=== PATIENT | female | born 1950 | race Caucasian/White ===

== ENCOUNTER → 2018-03-13 | Outpatient (REF) | payer MEDICARE ==
[2018-03-13 11:02] LABS: HEMATOCRIT 35.6 % (37.0-47.0); HEMOGLOBIN 12.1 g/dl (12.0-16.0); IMMATURE GRANULOCYTES 0.5 % (0.0-5.0); MEAN CELL VOLUME 92.7 fL CALC (80.0-100.0); MEAN CORPUSCULAR HGB 31.5 pG CALC (26.0-32.0); NEUT# 2.58 thou/uL (2.00-7.15); RED BLOOD COUNT 3.84 mill/uL (4.20-5.60); RED CELL DISTRI WIDTH 13.3 % (11.5-15.5)
[2018-03-13 11:23] LABS: ANION GAP 12 (6-22 (CALC)); BUN 16 mg/dL (8-23); BUN/CREATININE RATIO 19 (12-20 (CALC)); CARBON DIOXIDE 25 mmol/l (22-30); CHLORIDE 110 mmol/l (95-108); CREATININE 0.9 mg/dL (0.5-1.0); GFR > 60 ML/MIN (>=60 (CALC)); GFR FOR AFR.AMER. > 60 ML/MIN (>=60 (CALC)); POTASSIUM 3.6 mmol/l (3.5-5.1); SODIUM 142 mmol/l (137-146)
== END | disposition home or self-care (01) ==
LOC: LAB 10:16
PROVIDERS: ATTEND Internal Medicine Pulmonary Disease
DX: D64.9 Anemia, unspecified (principal); E87.6 Hypokalemia

== ENCOUNTER → 2018-08-12 | Outpatient (REF) | payer MEDICARE ==
[2018-08-12 11:44] LABS: HEMATOCRIT 37.2 % (37.0-47.0); HEMOGLOBIN 12.3 g/dl (12.0-16.0); IMMATURE GRANULOCYTES 0.7 % (0.0-5.0); MEAN CELL VOLUME 94.2 fL CALC (80.0-100.0); MEAN CORPUSCULAR HGB 31.1 pG CALC (26.0-32.0); MEAN CORPUSCULAR HGB CONC 33.1 g/L CALC (32.0-36.0); NEUT# 3.19 thou/uL (2.00-7.15); RED BLOOD COUNT 3.95 mill/uL (4.20-5.60); RED CELL DISTRI WIDTH 13.2 % (11.5-15.5)
[2018-08-12 11:56] LABS: ALBUMIN 4.4 g/dL (3.2-5.0); ALKALINE PHOSPHATASE 86 u/l (38-126); ANION GAP 12 (6-22 (CALC)); BILIRUBIN, TOTAL 0.4 mg/dL (0.0-1.4); BUN 22 mg/dL (8-23); BUN/CREATININE RATIO 18 (12-20 (CALC)); C-REACTIVE PROTEIN 1.1 mg/dL (0-0.9); CARBON DIOXIDE 22 mmol/l (22-30); CHLORIDE 109 mmol/l (95-108); CREATININE 1.2 mg/dL (0.5-1.0); GFR 45 ML/MIN (>=60 (CALC)); GFR FOR AFR.AMER. 54 ML/MIN (>=60 (CALC)); POTASSIUM 4.2 mmol/l (3.5-5.1); SGOT/AST 29 u/l (9-36); SODIUM 140 mmol/l (137-146); TOTAL PROTEIN 7.1 g/dL (6.3-8.2)
== END | disposition home or self-care (01) ==
LOC: ULTRASND 09:58
PROVIDERS: ATTEND Internal Medicine Pulmonary Disease
DX: I10 Essential (primary) hypertension (principal); N18.9 Chronic kidney disease, unspecified; D64.9 Anemia, unspecified; M19.90 Unspecified osteoarthritis, unspecified site; R76.8 Other specified abnormal immunological findings in serum

== ENCOUNTER → 2018-08-27 | Outpatient (REF) | payer MEDICARE ==
[2018-08-27 10:21] LABS: URINE BILIRUBIN - DIPSTICK NEGATIVE (NEGATIVE); URINE BLOOD DIPSTICK NEGATIVE (NEGATIVE); URINE COLOR YELLOW; URINE GLUCOSE - DIPSTICK NEGATIVE (NEGATIVE); URINE KETONE NEGATIVE (NEGATIVE); URINE LEUK ESTERASE NEGATIVE (NEGATIVE); URINE NITRITE - DIPSTICK NEGATIVE (Negative); URINE PH 5.5 (4.5-8.0); URINE PROTEIN - DIPSTICK NEGATIVE (NEG-TRACE); URINE SPECIFIC GRAVITY >=1.030; URINE UROBILINOGEN - DIPSTICK 0.2 E.U./dL (0.2)
[2018-08-27 10:24] LABS: HEMATOCRIT 37.6 % (37.0-47.0); HEMOGLOBIN 12.6 g/dl (12.0-16.0); IMMATURE GRANULOCYTES 1.3 % (0.0-5.0); MEAN CORPUSCULAR HGB 30.5 pG CALC (26.0-32.0); MEAN CORPUSCULAR HGB CONC 33.5 g/L CALC (32.0-36.0); NEUT# 3.19 thou/uL (2.00-7.15); RED BLOOD COUNT 4.13 mill/uL (4.20-5.60); RED CELL DISTRI WIDTH 12.8 % (11.5-15.5)
[2018-08-27 10:53] LABS: ALBUMIN 4.4 g/dL (3.2-5.0); BILIRUBIN, TOTAL 0.3 mg/dL (0.0-1.4); CREATININE 1.1 mg/dL (0.5-1.0); POTASSIUM 4.3 mmol/l (3.5-5.1); TOTAL PROTEIN 7.6 g/dL (6.3-8.2)
[2018-08-27 11:06] LABS: CHOLESTEROL HDL RATIO 3.9 (<4.4 (CALC))
== END | disposition home or self-care (01) ==
LOC: LAB 09:56
PROVIDERS: ATTEND Internal Medicine Nephrology
DX: N18.3 Chronic kidney disease, stage 3 (moderate) (principal); I10 Essential (primary) hypertension; E78.5 Hyperlipidemia, unspecified; E03.9 Hypothyroidism, unspecified; Z79.899 Other long term (current) drug therapy

== ENCOUNTER 2019-06-30 16:10 | Inpatient (IN) | payer MEDICARE ==
[~2019-06-30] VITALS: Ht 152.4 cm; Wt 69.7 kg
[2019-06-30 17:16] LABS: HEMATOCRIT 36.2 % (37.0-47.0); HEMOGLOBIN 12.1 g/dl (12.0-16.0); IMMATURE GRANULOCYTES 4.7 % (0.0-5.0); MEAN CELL VOLUME 91.6 fL CALC (80.0-100.0); MEAN CORPUSCULAR HGB 30.6 pG CALC (26.0-32.0); MEAN CORPUSCULAR HGB CONC 33.4 g/L CALC (32.0-36.0); NEUT# 5.57 thou/uL (2.00-7.15); RED BLOOD COUNT 3.95 mill/uL (4.20-5.60); RED CELL DISTRI WIDTH 13.8 % (11.5-15.5)
[2019-06-30 17:46] LABS: ALBUMIN 3.7 g/dL (3.2-5.0); ALKALINE PHOSPHATASE 79 u/l (38-126); BILIRUBIN, TOTAL 0.5 mg/dL (0.0-1.4); BUN 30 mg/dL (8-23); CHLORIDE 101 mmol/l (95-108); POTASSIUM 4.5 mmol/l (3.5-5.1); SGOT/AST 63 u/l (9-36); TOTAL PROTEIN 6.5 g/dL (6.3-8.2)
[2019-06-30 17:56] LABS: ANION GAP 16 (6-22 (CALC)); CARBON DIOXIDE 18 mmol/l (22-30); SODIUM 130 mmol/l (137-146)
[2019-06-30 18:35] LABS: BUN/CREATININE RATIO 38 (12-20 (CALC)); CREATININE 0.8 mg/dL (0.5-1.0); GFR > 60 ML/MIN (>=60 (CALC)); GFR FOR AFR.AMER. > 60 ML/MIN (>=60 (CALC))
[2019-06-30] MEDS ORDERED: FLUDROCORT0.1 MG PO (18:42)
[2019-06-30] MEDS ORDERED: ARNUITY EL50 MCG/ACT NAB (18:43)
[2019-06-30] MEDS ORDERED: BREO ELLIPTA1 INH IN (18:44)
[2019-06-30] MEDS ORDERED: HYDROMET1 M1 PO (18:48)
[2019-06-30] MEDS ORDERED: LEVOTHYROXIN75 MCG PO (18:48)
[2019-06-30] MEDS ORDERED: LIOTHYRONINE5 MCG PO (18:49)
[2019-06-30] MEDS ORDERED: CLARITIN10 M1 PO (18:50)
[2019-06-30] MEDS ORDERED: MELATONIN PO (18:51)
[2019-06-30] MEDS ORDERED: MELOXICAM15 MG PO (18:51)
[2019-06-30] MEDS ORDERED: MULTI VITAMIN1 TAB PO (18:53)
[2019-06-30] MEDS ORDERED: POT CHLORIDE20 ME3 PO (18:54)
[2019-06-30 19:02] LABS: URINE BILIRUBIN - DIPSTICK NEGATIVE (NEGATIVE); URINE BLOOD DIPSTICK NEGATIVE (NEGATIVE); URINE COLOR YELLOW; URINE GLUCOSE - DIPSTICK 250 mg/dL (NEGATIVE); URINE KETONE NEGATIVE (NEGATIVE); URINE LEUK ESTERASE NEGATIVE (NEGATIVE); URINE NITRITE - DIPSTICK NEGATIVE (Negative); URINE PROTEIN - DIPSTICK NEGATIVE (NEG-TRACE); URINE UROBILINOGEN - DIPSTICK 0.2 E.U./dL (0.2)
[2019-06-30] MEDS ORDERED: VITAMIN C500 M6 PO (19:18)
[2019-06-30] MEDS ORDERED: METRONIDAZOL500 MG PO (19:18)
[2019-06-30] MEDS ORDERED: DOXYCYCL HYC100 MG PO (19:18)
[2019-06-30] MEDS ORDERED: TESSALON PER100 MG PO (19:19)
[2019-06-30] MEDS ORDERED: DOXEPIN HCL25 MG PO (19:21)
[2019-06-30] MEDS ORDERED: VIBERZI75 MG PO (19:22)
[2019-06-30] MEDS ORDERED: DHEA25 M1 PO (19:23)
[2019-06-30] MEDS ORDERED: PREDNISONE10 MG PO (19:23)
[2019-06-30] MEDS ORDERED: NEXIUM40 MG PO (19:24)
[2019-06-30] MEDS ORDERED: VITAMIN D31000 UNI1 PO (19:25)
[2019-06-30] MEDS ORDERED: PROGESTERONE200 MG PO (19:26)
[2019-06-30] MEDS ORDERED: MIDODRINE5 MG PO (19:26)
[2019-06-30] MEDS ORDERED: PROPRANOLOL HCL20 MG PO (19:29)
[2019-06-30] MEDS ORDERED: FLORASTOR250 M1 PO (19:30)
[2019-06-30] MEDS ORDERED: QUETIAPINE FUM100 MG PO (19:30)
[2019-06-30] MEDS ORDERED: SPIRONOLACTONE25 MG PO (19:31)
[2019-06-30] MEDS ORDERED: VENLAFAXINE HCL75 M1 PO (19:33)
[2019-06-30] MEDS ORDERED: MAXZIDE-2537.5 MG/TA PO (19:33)
[2019-06-30 22:51] VITALS: BP 144/83
[2019-07-01] VITALS (9 sets, daily range): BP systolic 107–177; BP diastolic 53–97
[2019-07-01] MEDS ORDERED: VITAMIN C500 M6 PO (16:14)
[2019-07-01] MEDS ORDERED: TESSALON PER100 MG PO (16:17)
[2019-07-01] MEDS ORDERED: EQL VITAMIN PO (16:24)
[2019-07-01] MEDS ORDERED: DOXEPIN HCL25 MG (16:27)
[2019-07-01] MEDS ORDERED: VIBERZI100 MG PO (16:29)
[2019-07-01] MEDS ORDERED: NEXIUM40 MG PO (16:30)
[2019-07-02 04:25] VITALS: BP 117/69
[2019-07-02 07:31] VITALS: BP 140/78
[2019-07-02 11:25] VITALS: BP 157/74
[2019-07-02 16:18] VITALS: BP 135/67
[2019-07-02 19:17] VITALS: BP 131/75
[2019-07-03 00:02] VITALS: BP 94/57
[2019-07-03 03:40] VITALS: BP 101/62
[2019-07-03 05:26] LABS: IMMATURE GRANULOCYTES 2.5 % (0.0-5.0); MEAN CELL VOLUME 92.4 fL CALC (80.0-100.0); MEAN CORPUSCULAR HGB 30.8 pG CALC (26.0-32.0); MEAN CORPUSCULAR HGB CONC 33.3 g/L CALC (32.0-36.0); NEUT# 1.39 thou/uL (2.00-7.15); RED BLOOD COUNT 2.89 mill/uL (4.20-5.60); RED CELL DISTRI WIDTH 14.3 % (11.5-15.5)
[2019-07-03 05:34] LABS: HEMOGLOBIN 8.9 g/dl (12.0-16.0)
[2019-07-03 05:35] LABS: HEMATOCRIT 26.7 % (37.0-47.0)
[2019-07-03 05:47] LABS: BUN 12 mg/dL (8-23); BUN/CREATININE RATIO 23 (12-20 (CALC)); CARBON DIOXIDE 20 mmol/l (22-30); CHLORIDE 112 mmol/l (95-108); CREATININE 0.5 mg/dL (0.5-1.0); GFR > 60 ML/MIN (>=60 (CALC)); GFR FOR AFR.AMER. > 60 ML/MIN (>=60 (CALC)); MAGNESIUM 1.5 mg/dL (1.6-2.3); SODIUM 136 mmol/l (137-146)
[2019-07-03 05:54] LABS: ANION GAP 7 (6-22 (CALC)); POTASSIUM 3.1 mmol/l (3.5-5.1)
[2019-07-03 07:40] VITALS: BP 124/71
[2019-07-03 11:00] VITALS: BP 105/63
[2019-07-03 15:48] VITALS: BP 116/73
[2019-07-03] MEDS ORDERED: DILTIAZEM HCL60 MG PO (16:40)
== END 2019-07-03 17:51 | disposition home or self-care (01) | DRG 309 ==
LOC: ED 16:10 → ED-I 19:04 → ED 19:16 → MS2 19:17
PROVIDERS: Family Medicine; Nurse Practitioner Family; ADMIT Internal Medicine; ATTEND Internal Medicine
DX: I49.8 Other specified cardiac arrhythmias (principal); E27.40 Unspecified adrenocortical insufficiency; I95.1 Orthostatic hypotension; E87.6 Hypokalemia; I10 Essential (primary) hypertension; J44.9 Chronic obstructive pulmonary disease, unspecified; E03.9 Hypothyroidism, unspecified
CPT/HCPCS: G0378

== ENCOUNTER 2019-11-10 13:44 | Emergency (ER) | payer MEDICARE ==
[~2019-11-10 13:44] MED LIST: ARNUITY EL50 MCG/ACT NAB; BREO ELLIPTA1 INH IN; CLARITIN10 M1 PO; DHEA25 M1 PO; DILTIAZEM HCL60 MG PO; DOXEPIN HCL25 MG; DOXEPIN HCL25 MG PO; DOXYCYCL HYC100 MG PO; EQL VITAMIN PO; FLORASTOR250 M1 PO; FLUDROCORT0.1 MG PO; HYDROMET1 M1 PO; LEVOTHYROXIN75 MCG PO; LIOTHYRONINE5 MCG PO; MAXZIDE-2537.5 MG/TA PO; MELATONIN PO; MELOXICAM15 MG PO; METRONIDAZOL500 MG PO; MIDODRINE5 MG PO; MULTI VITAMIN1 TAB PO; NEXIUM40 MG PO; POT CHLORIDE20 ME3 PO; PREDNISONE10 MG PO; PROGESTERONE200 MG PO; PROPRANOLOL HCL20 MG PO; QUETIAPINE FUM100 MG PO; SPIRONOLACTONE25 MG PO; TESSALON PER100 MG PO; VENLAFAXINE HCL75 M1 PO; VIBERZI100 MG PO; VIBERZI75 MG PO; VITAMIN C500 M6 PO; VITAMIN D31000 UNI1 PO
[2019-11-10 14:42] LABS: HEMOGLOBIN 11.8 g/dl (12.0-16.0); IMMATURE GRANULOCYTES 0.4 % (0.0-5.0); MEAN CELL VOLUME 90.9 fL CALC (80.0-100.0); MEAN CORPUSCULAR HGB 30.6 pG CALC (26.0-32.0); MEAN CORPUSCULAR HGB CONC 33.7 g/dL CAL (32.0-36.0); NEUT# 3.49 thou/uL (2.00-7.15); RED BLOOD COUNT 3.85 mill/uL (4.20-5.60)
[2019-11-10 14:58] LABS: ALBUMIN 4.2 g/dL (3.2-5.0); ALKALINE PHOSPHATASE 256 u/l (38-126); ANION GAP 12 (6-22 (CALC)); BILIRUBIN, TOTAL 0.4 mg/dL (0.0-1.4); BUN 19 mg/dL (8-23); BUN/CREATININE RATIO 19 (12-20 (CALC)); CARBON DIOXIDE 24 mmol/l (22-30); CHLORIDE 104 mmol/l (95-108); GFR 55 ML/MIN (>=60 (CALC)); GFR FOR AFR.AMER. > 60 ML/MIN (>=60 (CALC)); LIPASE 213 u/l (23-300); MAGNESIUM 1.7 mg/dL (1.6-2.3); POTASSIUM 2.9 mmol/l (3.5-5.1); SGOT/AST 45 u/l (9-36); SODIUM 137 mmol/l (137-146); TOTAL PROTEIN 7.9 g/dL (6.3-8.2)
[2019-11-10 15:27] LABS: TSH, 3RD GENERATION 0.05 uIU/mL (0.47 - 4.68)
[2019-11-10 15:30] VITALS: BP 138/93
== END 2019-11-10 15:28 | disposition short-term general hospital (02) ==
LOC: ED 13:44
PROVIDERS: Family Medicine
PROC: 5A2204Z Restoration of Cardiac Rhythm, Single (ICD-10-PCS; principal; 2019-11-10)
DX: I47.2 Ventricular tachycardia (principal); I10 Essential (primary) hypertension
CPT/HCPCS: J0282

== ENCOUNTER → 2021-02-12 | Outpatient (REF) | payer MEDICARE ==
[2021-02-12 10:41] LABS: URINE BILIRUBIN - DIPSTICK NEGATIVE (NEGATIVE); URINE BLOOD DIPSTICK NEGATIVE (NEGATIVE); URINE CLARITY CLEAR; URINE COLOR YELLOW; URINE GLUCOSE - DIPSTICK NEGATIVE (NEGATIVE); URINE KETONE NEGATIVE (NEGATIVE); URINE LEUK ESTERASE NEGATIVE (Negative); URINE NITRITE - DIPSTICK NEGATIVE (Negative); URINE PH 6.5 (4.5-8.0); URINE PROTEIN - DIPSTICK NEGATIVE (NEG-TRACE); URINE UROBILINOGEN - DIPSTICK 0.2 E.U./dL (0.2)
[2021-02-12 10:44] LABS: HEMATOCRIT 33.5 % (37.0-47.0); IMMATURE GRANULOCYTES 0.5 % (0.0-5.0); MEAN CORPUSCULAR HGB 34.2 pG CALC (26.0-32.0); MEAN CORPUSCULAR HGB CONC 32.8 g/dL CAL (32.0-36.0); NEUT# 4.57 thou/uL (2.00-7.15); RED BLOOD COUNT 3.22 mill/uL (4.20-5.60); RED CELL DISTRI WIDTH 15.9 % (11.5-15.5)
[2021-02-12 10:58] LABS: ALBUMIN 4.3 g/dL (3.2-5.0); BILIRUBIN, TOTAL 0.4 mg/dL (0.0-1.4); CREATININE 2.1 mg/dL (0.5-1.0); MAGNESIUM 1.8 mg/dL (1.6-2.3); POTASSIUM 3.9 mmol/l (3.5-5.1); TOTAL PROTEIN 7.6 g/dL (6.3-8.2)
== END | disposition home or self-care (01) ==
LOC: LAB 09:29
PROVIDERS: ATTEND Internal Medicine Pulmonary Disease
DX: N18.4 Chronic kidney disease, stage 4 (severe) (principal); D64.9 Anemia, unspecified; I50.9 Heart failure, unspecified; E61.2 Magnesium deficiency; E87.8 Other disorders of electrolyte and fluid balance, not elsewhere classified; R82.1 Myoglobinuria

== ENCOUNTER 2021-06-27 04:48 | Inpatient (IN) | payer MEDICARE ==
[~2021-06-27] VITALS: Ht 152.4 cm; Wt 52.0 kg
[2021-06-27] VITALS (10 sets, daily range): BP systolic 123–170; BP diastolic 60–83
[~2021-06-27 04:48] MED LIST changes: +DOXEPIN HCL10 MG PO; -DOXEPIN HCL25 MG PO; -LEVOTHYROXIN75 MCG PO; +LEVOTHYROXIN88 MC1 PO; -MELATONIN PO; +MELATONIN10 M1 PO
[2021-06-27 05:40] LABS: HEMATOCRIT 33.3 % (37.0-47.0); HEMOGLOBIN 10.3 g/dl (12.0-16.0); IMMATURE GRANULOCYTES 1.3 % (0.0-5.0); MEAN CELL VOLUME 121.5 fL CALC (80.0-100.0); MEAN CORPUSCULAR HGB 37.6 pG CALC (26.0-32.0); MEAN CORPUSCULAR HGB CONC 30.9 g/dL CAL (32.0-36.0); NEUT# 19.62 thou/uL (2.00-7.15); RED BLOOD COUNT 2.74 mill/uL (4.20-5.60); RED CELL DISTRI WIDTH 16.2 % (11.5-15.5)
[2021-06-27 05:59] LABS: D-DIMER 1.4 mg/L (0.19-0.60)
[2021-06-27 06:04] LABS: ALBUMIN 4.1 g/dL (3.2-5.0); BILIRUBIN, TOTAL 0.9 mg/dL (0.0-1.4); CREATININE 2.1 mg/dL (0.5-1.0); MAGNESIUM 1.7 mg/dL (1.6-2.3); POTASSIUM 5.1 mmol/l (3.5-5.1)
[2021-06-27 06:05] LABS: ACT PARTIAL THROMBO TIME 19.4 SECONDS (20.0-32.5); INTERNATIONAL NORMALIZED RATIO 1.1 RATIO (0.7-1.3); PROTHROMBIN TIME 11.4 SECONDS (9.0-12.5)
[2021-06-27] MEDS ORDERED: VENLAFAXINE100 MG PO (07:44)
[2021-06-27] MEDS ORDERED: ZYLOPRIM100 MG PO (07:44)
[2021-06-27] MEDS ORDERED: ALBUTEROL108 MCG/AC PO (07:49)
[2021-06-27] MEDS ORDERED: ADULT ASPIRIN R81 MG PO (07:50)
[2021-06-27] MEDS ORDERED: TENORMIN50 MG PO (07:50)
[2021-06-27] MEDS ORDERED: BUDESONID2 IN (07:52)
[2021-06-27] MEDS ORDERED: DHEA PO (07:54)
[2021-06-27] MEDS ORDERED: FEBUXOSTAT40 MG PO (07:55)
[2021-06-27] MEDS ORDERED: FISH OIL1 CAP PO (07:55)
[2021-06-27] MEDS ORDERED: FOLIC ACID1 M1 PO (07:56)
[2021-06-27] MEDS ORDERED: GLIPIZIDE ER5 MG PO (07:58)
[2021-06-27] MEDS ORDERED: LASIX 40 MG TAB40 MG PO (07:59)
[2021-06-27] MEDS ORDERED: HYDROCORT10 MG PO (07:59)
[2021-06-27] MEDS ORDERED: TYLENOL500 MG PO (08:01)
[2021-06-27] MEDS ORDERED: VITAMIN D2 PO (08:02)
[2021-06-27] MEDS ORDERED: NIASPAN1000 MG PO (08:10)
[2021-06-27] MEDS ORDERED: NPLATE125 MCG SC (08:11)
[2021-06-27] MEDS ORDERED: PLAVIX75 MG PO (08:12)
[2021-06-27] MEDS ORDERED: PEPCID20 MG PO (08:12)
[2021-06-27] MEDS ORDERED: PROTONIX40 M2 PO (08:12)
[2021-06-27] MEDS ORDERED: PREDNISONE10 MG PO (08:13)
[2021-06-27] MEDS ORDERED: PROGESTERONE200 MG PO (08:13)
[2021-06-27] MEDS ORDERED: SEROQUEL200 MG PO (08:16)
[2021-06-27] MEDS ORDERED: SILDENAFIL20 MG PO (08:17)
[2021-06-27] MEDS ORDERED: ALDACTONE100 MG PO (08:17)
[2021-06-27] MEDS ORDERED: INDERAL10 M1 PO (08:18)
[2021-06-27] MEDS ORDERED: BUMETANIDE1 MG PO (08:20)
[2021-06-27] MEDS ORDERED: DICYCLOMINE HCL20 MG PO (08:21)
[2021-06-27] MEDS ORDERED: [UNRECOGNIZED DRUG - CODE] IV (08:23)
[2021-06-27] MEDS ORDERED: MIDODRINE5 MG PO (08:24)
[2021-06-27] MEDS ORDERED: NITROGLYCERIN0.3 MG PO (08:26)
[2021-06-27] MEDS ORDERED: PERFOROMIS20 MCG/2 M PO (08:27)
[2021-06-27] MEDS ORDERED: K-TABS10 MEQ PO (08:30)
[2021-06-27] MEDS ORDERED: SODIUM BICAR650 MG PO (08:32)
[2021-06-27] MEDS ORDERED: LINZESS145 MCG PO (08:34)
[2021-06-27] MEDS ORDERED: ZAROXOLYN10 MG PO (08:35)
[2021-06-27] MEDS ORDERED: MAG-OXIDE200 MG PO (08:35)
[2021-06-27 09:26] LABS: URINE BILIRUBIN - DIPSTICK NEGATIVE (NEGATIVE); URINE BLOOD DIPSTICK MODERATE (NEGATIVE); URINE COLOR YELLOW; URINE GLUCOSE - DIPSTICK 250 mg/dL (NEGATIVE); URINE KETONE NEGATIVE (NEGATIVE); URINE PROTEIN - DIPSTICK NEGATIVE (NEG-TRACE); URINE SPECIFIC GRAVITY 1.015; URINE UROBILINOGEN - DIPSTICK 0.2 E.U./dL (0.2)
[2021-06-27 09:27] LABS: URINE LEUK ESTERASE SMALL (NEGATIVE); URINE NITRITE - DIPSTICK NEGATIVE (Negative); URINE SQUAMOUS EPITHELIAL CELL FEW EPI/hpf (0-FEW)
[2021-06-27 11:05] LABS: ALBUMIN 4.2 g/dL (3.2-5.0); BILIRUBIN, TOTAL 0.9 mg/dL (0.0-1.4); C-REACTIVE PROTEIN 8.2 mg/dL (0-0.9); MAGNESIUM 1.6 mg/dL (1.6-2.3)
[2021-06-27 11:08] LABS: CHOLESTEROL HDL RATIO 2.6 (<4.4 (CALC))
[2021-06-27 11:35] LABS: URINE BILIRUBIN - DIPSTICK NEGATIVE (NEGATIVE); URINE BLOOD DIPSTICK TRACE-INTACT (NEGATIVE); URINE CLARITY CLEAR; URINE COLOR YELLOW; URINE GLUCOSE - DIPSTICK 250 mg/dL (NEGATIVE); URINE KETONE NEGATIVE (NEGATIVE); URINE LEUK ESTERASE NEGATIVE (Negative); URINE NITRITE - DIPSTICK NEGATIVE (Negative); URINE PROTEIN - DIPSTICK NEGATIVE (NEG-TRACE); URINE SPECIFIC GRAVITY 1.015; URINE UROBILINOGEN - DIPSTICK 0.2 E.U./dL (0.2)
[2021-06-28] VITALS (7 sets, daily range): BP systolic 142–186; BP diastolic 76–106
[2021-06-28 06:13] LABS: HEMATOCRIT 35.2 % (37.0-47.0); MEAN CELL VOLUME 121.8 fL CALC (80.0-100.0); MEAN CORPUSCULAR HGB 38.1 pG CALC (26.0-32.0); MEAN CORPUSCULAR HGB CONC 31.3 g/dL CAL (32.0-36.0); NEUT# 13.62 thou/uL (2.00-7.15); RED BLOOD COUNT 2.89 mill/uL (4.20-5.60); RED CELL DISTRI WIDTH 15.8 % (11.5-15.5)
[2021-06-28 06:28] LABS: INTERNATIONAL NORMALIZED RATIO 1.2 RATIO (0.7-1.3)
[2021-06-28 06:40] LABS: ALBUMIN 3.8 g/dL (3.2-5.0); BILIRUBIN, TOTAL 0.8 mg/dL (0.0-1.4); CREATININE 1.7 mg/dL (0.5-1.0); POTASSIUM 4.3 mmol/l (3.5-5.1)
[2021-06-29] VITALS (9 sets, daily range): BP systolic 122–163; BP diastolic 58–87
[2021-06-29 05:18] LABS: HEMATOCRIT 31.2 % (37.0-47.0); HEMOGLOBIN 9.8 g/dl (12.0-16.0); MEAN CELL VOLUME 118.2 fL CALC (80.0-100.0); MEAN CORPUSCULAR HGB 37.1 pG CALC (26.0-32.0); MEAN CORPUSCULAR HGB CONC 31.4 g/dL CAL (32.0-36.0); RED BLOOD COUNT 2.64 mill/uL (4.20-5.60); RED CELL DISTRI WIDTH 15.8 % (11.5-15.5)
[2021-06-29 05:29] LABS: CREATININE 1.9 mg/dL (0.5-1.0); MAGNESIUM 1.8 mg/dL (1.6-2.3); POTASSIUM 4.1 mmol/l (3.5-5.1)
[2021-06-30] VITALS (12 sets, daily range): BP systolic 114–168; BP diastolic 59–85
[2021-06-30 08:02] LABS: HEMATOCRIT 29.7 % (37.0-47.0); HEMOGLOBIN 9.3 g/dl (12.0-16.0); MEAN CELL VOLUME 119.8 fL CALC (80.0-100.0); MEAN CORPUSCULAR HGB 37.5 pG CALC (26.0-32.0); MEAN CORPUSCULAR HGB CONC 31.3 g/dL CAL (32.0-36.0); RED BLOOD COUNT 2.48 mill/uL (4.20-5.60); RED CELL DISTRI WIDTH 15.6 % (11.5-15.5)
[2021-06-30 08:14] LABS: CREATININE 1.6 mg/dL (0.5-1.0); MAGNESIUM 1.6 mg/dL (1.6-2.3); POTASSIUM 4.9 mmol/l (3.5-5.1)
[2021-06-30 15:45] LABS: TSH, 3RD GENERATION 1.66 uIU/mL (0.47 - 4.68)
[2021-07-01 01:00] VITALS: BP 126/57
[2021-07-01 02:53] VITALS: BP 120/69
[2021-07-01 04:08] VITALS: BP 140/65
[2021-07-01 04:46] LABS: HEMATOCRIT 27.5 % (37.0-47.0); HEMOGLOBIN 8.6 g/dl (12.0-16.0); MEAN CELL VOLUME 117.5 fL CALC (80.0-100.0); MEAN CORPUSCULAR HGB 36.8 pG CALC (26.0-32.0); MEAN CORPUSCULAR HGB CONC 31.3 g/dL CAL (32.0-36.0); RED BLOOD COUNT 2.34 mill/uL (4.20-5.60); RED CELL DISTRI WIDTH 15.3 % (11.5-15.5)
[2021-07-01 04:47] LABS: CREATININE 1.1 mg/dL (0.5-1.0); MAGNESIUM 1.8 mg/dL (1.6-2.3)
[2021-07-01 05:05] LABS: POTASSIUM 3.8 mmol/l (3.5-5.1)
[2021-07-01 08:00] VITALS: BP 137/90
[2021-07-01 10:00] VITALS: BP 128/43
[2021-07-01 12:00] VITALS: BP 129/63
[2021-07-01] MEDS ORDERED: MACROBID100 M1 PO (12:37)
== END 2021-07-01 14:00 | DRG 193 ==
LOC: ED 04:48 → ED-I 06:20 → ED 07:02 → ED-I 07:03 → MS2 09:30 → ICU 10:39
PROVIDERS: Family Medicine; Hospitalist; Nurse Practitioner; ADMIT Internal Medicine; ATTEND Internal Medicine
PROC: 0T9B70Z Drainage of Bladder with Drainage Device, Via Natural or Artificial Opening (ICD-10-PCS; principal; 2021-06-27)
PROC: 5A09357 Assistance with Respiratory Ventilation, Less than 24 Consecutive Hours, Continuous Positive Airway Pressure (ICD-10-PCS; 2021-06-29)
DX: J18.9 Pneumonia, unspecified organism (principal); G93.41 Metabolic encephalopathy; G92.8 Other toxic encephalopathy; N39.0 Urinary tract infection, site not specified; E87.2 Acidosis; J96.11 Chronic respiratory failure with hypoxia; D69.3 Immune thrombocytopenic purpura; N18.4 Chronic kidney disease, stage 4 (severe); Z16.12 Extended spectrum beta lactamase (ESBL) resistance; N17.9 Acute kidney failure, unspecified; T40.605A Adverse effect of unspecified narcotics, initial encounter; I12.9 Hypertensive chronic kidney disease with stage 1 through stage 4 chronic kidney disease, or unspecified chronic kidney disease; I25.10 Atherosclerotic heart disease of native coronary artery without angina pectoris; I27.20 Pulmonary hypertension, unspecified; I48.91 Unspecified atrial fibrillation; I49.5 Sick sinus syndrome; G47.00 Insomnia, unspecified; E03.9 Hypothyroidism, unspecified; B96.20 Unspecified Escherichia coli [E. coli] as the cause of diseases classified elsewhere; Z95.5 Presence of coronary angioplasty implant and graft; Z98.84 Bariatric surgery status; Z99.81 Dependence on supplemental oxygen; Z95.810 Presence of automatic (implantable) cardiac defibrillator; Z20.822 Contact with and (suspected) exposure to COVID-19; D64.9 Anemia, unspecified; G72.9 Myopathy, unspecified; R23.3 Spontaneous ecchymoses; E87.8 Other disorders of electrolyte and fluid balance, not elsewhere classified; I50.9 Heart failure, unspecified; M79.81 Nontraumatic hematoma of soft tissue
CPT/HCPCS: A9540; J2060; J3370; S0166